=== PATIENT | male | born 1945 | race Caucasian/White ===

== ENCOUNTER → 2020-04-19 | Outpatient (CLI) | payer OTHER ==
[~2020-04-19] MED LIST: ASPIRIN EC81 M1 PO; DULOXETINE HCL60 MG PO; LEVOTHYROXINE75 MCG PO; NAPROSYN500 MG PO; NORCO 5-325 TA1 EAC2 PO; ROSUVASTATIN CAL5 MG PO; TESTOSTERO200 MG/1 M IM; TIADYLT ER360 MG PO
== END ==
LOC: M.LAB 09:26
PROVIDERS: ATTEND Orthopaedic Surgery
DX: Z01.812 Encounter for preprocedural laboratory examination (principal); Z20.828 Contact with and (suspected) exposure to other viral communicable diseases

== ENCOUNTER → 2020-04-25 | Day surgery (SDC) | payer OTHER ==
--- NOTE | 2020-04-25 11:02 | EKG ---
[place] [address] ELECTROCARDIOGRAM REPORT Name: NEWTON ASTUDILLO Room: [facility]#: [id number] Admission: 04/25/20 Attend Phys: Carlos Lopes DO Discharge: Date of : 41 Date of Service: 04/25/20 1058 Report #: [id number] THIS REPORT FOR: //name// [facility] Test Date: 2020-04-25 Test Time: 10:58:47 Pat Name: NEWTON ASTUDILLO Department: Room: Gender: [employer]: : 1945 Requested By: Carlos Lopes Order Number: [id number] MD: Semaj Rushing Measurements Intervals [place] Rate: 64 P: 47 AK: 188 QRS: -24 QRSD: 168 T: 6 QT: 430 QTc: 444 Interpretive Statements Sinus rhythm Ventricular premature complex Right bundle branch block No previous ECG available for comparison Electronically Signed On 04-25-2020 11:02:39 SCRAP [employer]IP[employer] by Semaj Rushing [email or web address] <ELECTRONICALLY SIGNED> By: Semaj Rushing MD, [facility] 04/25/20 1102 57 Semaj Rushing MD, FACC /EPI
[2020-04-25 11:06] LABS: HEMATOCRIT 39.9 % (42.0-52.0); HEMOGLOBIN 12.8 gm/dL (14.0-18.0); MCH 24.5 pg (26.0-34.0); MCHC 32.2 g/dL (28.0-37.0); MCV 76.2 fL (80.0-100.0); MPV 7.5 fl. (7.2-11.1); RBC 5.24 mil/uL (4.50-6.00); RDW-CV 17.3 % (10.5-14.5); WBC 6.4 thou/uL (4.0-11.0)
[2020-04-25 11:12] LABS: CALCIUM 9.3 mg/dL (8.5-10.1); CREATININE 0.9 mg/dL (0.6-1.3); POTASSIUM 4.1 mmol/L (3.5-5.1)
--- NOTE | 2020-04-27 17:06 | PATH ---
[address] [address] PATHOLOGY RPT PROCEDURE Name: TEVIN ASTUDILLO Room: [facility]..#: [id number] Admission: 04/25/20 Date of : 41 Discharge: Report #: [id number] Path Case #: [id number] [facility] Accession Number: [id number] . 01 Material submitted: . PART A: shoulder - LIPOMA RIGHT SHOULDER. Modifiers: right PART B: neck - LIPOMA POSTERIOR NECK. Modifiers: posterior . 01 Clinical history: . CARPAL TUNNEL RELEASE, EXCISION LIPOMA, RIGHT CARPAL TUNNEL SYNDROME, BENIGN LIPOMA RIGHT SHOULDER, BENIGN POSTERIOR NECK . 02 Diagnosis: A. Right shoulder (lipoma): - Lipoma and attached benign skeletal muscle. . B. Posterior neck (lipoma): - Lipoma. (JONG/db; 04/27/2020) LBQ 04/27/2020 1457 Local . 02 Electronically signed: . Jackson Rocha MD, Pathologist NPI- [id number] . 01 Gross description: . A. The specimen is received in formalin, labeled "Tevin Astudillo, right shoulder" and consists of a partially encapsulated segment of yellow lobulated tissue measuring 10.1 x 6.4 x 2.3 cm with focal brown muscle. Section reveals homogeneous yellow cut surfaces and dealer compliance representative sections are submitted in A1-A3. . B. The specimen is received in formalin, labeled "Tevin Astudillo, posterior neck" and consists of a partially encapsulated segment of yellow lobulated tissue measuring 10.8 x 10.0 x 3.5 cm. Sectioning reveals homogeneous yellow cut surfaces and dealer compliance representative sections are submitted in B1-B3. (SDY; 04/26/2020) SYU/SYU 04/26/2020 1427 Local . 02 Pathologist provided ICD-10: D17.0, D17.39 . 02 CPT . 651317, 779364 Specimen Comment: A courtesy copy of this report has been sent to [phone], [facility]230 Specimen Comment: [address] [place] [address] PATHOLOGY RPT PROCEDURE Name: TEVIN ASTUDILLO Room: [facility]..#: [id number] Admission: 04/25/20 Date of : 41 Discharge: Report #: [id number] Path Case #: [id number] Specimen Comment: Report sent to / DR NEVES Performed at: [address], [place], [place] [id number] MD Yevgeniy More MD Phone: [phone] Performed at: 02 [facility] [address], [employer] [place], [place] [id number] MD Jackson Rocha MD Phone: [phone]
--- NOTE | 2020-05-02 14:07 | OP ---
[facility] [address] [place] [address] OPERATIVE REPORT Name: NEWTON ASTUDILLO Room: [facility].#: [id number] Admission: 04/25/20 Attend Phys: Carlos Lopes DO Discharge: Date of : 41 Report #: [id number] THIS REPORT FOR: //name// cc: Jamal Ibrahim Bradley L. DO ~ CC: Jamal Lopes DICTATED BY: Jose Luis Morales DO DATE OF SERVICE: 04/25/2020 PREOPERATIVE DIAGNOSES: 1. Right carpal tunnel syndrome. 2. Mass, posterior neck. 3. Mass, right posterior shoulder. POSTOPERATIVE DIAGNOSES: 1. Right carpal tunnel syndrome. 2. Mass, posterior neck. 3. Mass, right posterior shoulder. PROCEDURES: 1. Right carpal tunnel release. 2. Wide en bloc resection of posterior neck mass. 3. Wide en bloc resection of right posterior shoulder mass. SURGEON: Carlos Lopes DO ASSISTANTS: 1. Sabine Latham PA-C 2. Jose Luis Morales DO ANESTHESIA: General and local. FLUIDS: Crystalloid per Anesthesia. ESTIMATED BLOOD LOSS: 20 mL. DRAINS: None. SPECIMENS: 1. Mass from the posterior neck. 2. Soft tissue mass from right posterior shoulder. COMPLICATIONS: None. [facility] [place] [address] [place] [address] OPERATIVE REPORT Name: NEWTON ATSUDILLO Room: [facility]#: [id number] Admission: 04/25/20 Attend Phys: Carlos Lopes DO Discharge: Date of : 41 Report #: [id number] CONDITION: Stable to PACU. DISPOSITION: Recovery in the PACU and discharged home. ANTIBIOTICS: 2 grams Ancef IV preop. TOURNIQUET: 250 mmHg for approximately 15 minutes. INDICATIONS FOR PROCEDURE: The patient is a very pleasant 74-year-old male who presented with clinical findings consistent with carpal tunnel syndrome. He also had EMG evidence of this as well. We recommended carpal tunnel release. He also had a posterior neck mass and right posterior shoulder mass, which had been present for years. He has no history of cancer. We obtained MRIs, which were consistent with large lipomas. MRI consisted of the C-spine and right shoulder. We discussed referral to Dr. Pena; however, the patient wanted to stay local for definitive management. We discussed carpal tunnel release and resection of both of the masses. The risks, benefits, alternatives and possible complications were discussed. He was agreeable to proceed. DESCRIPTION OF PROCEDURE: The patient was met in the preoperative area. The correct sites were marked. Consent was obtained both verbally and written. He was transferred to the operative suite and placed supine on the operative table. He was given the benefit of general anesthesia. The right upper extremity was then prepped and draped in the normal sterile fashion. This was done after a well-padded nonsterile tourniquet was applied. A timeout was performed to identify correct patient, procedure and operative site. All in the room were in agreement. A longitudinal incision was made over the carpal tunnel from the wrist crease to Cabral's cardinal line. This was on the radial aspect of the fourth ray. Sharp dissection was carried down to the transverse carpal ligament. Care was taken to avoid neurovascular structures including branches of the median nerve. The [employer] carpal tunnel release system was then used for dilation and transection of the transverse carpal ligament. Full release was confirmed both proximally and distally by visual inspection and by palpation. The wound was then irrigated thoroughly and closed with 4-0 nylon sutures in simple interrupted fashion followed by application of a sterile dressing including Xeroform, 4 x 4's, Kerlix and an Herman wrap. We then turned our attention to the resection of the masses from the posterior neck and right shoulder. The patient was turned from the supine position to the lateral decubitus position with an axillary roll. He was secured to the table. The area was then prepped and draped in normal sterile fashion. A longitudinal incision was made directly over the mass on the posterior aspect of the shoulder. Dissection was carried out using Metzenbaum scissors, ensuring full resection of the lipoma appearing tissue. Resection was carried out including a small cuff of normal tissue. Hemostasis was obtained throughout the case with electrocautery. The right posterior shoulder [place] [address] OPERATIVE REPORT Name: NEWTON ASTUDILLO [facility] [id number] Admission: 04/25/20 Attend Phys: Carlos Lopes DO Discharge: Date of : 41 Report #: [id number] sent for specimen. We then thoroughly irrigated the wound and reapproximated the dermal tissue with 2-0 Vicryl suture in simple interrupted inverted fashion followed by jabari on the skin. We then turned our attention to the posterior neck mass. A longitudinal incision was made directly over this. Dissection was carried down to the level of the lipomatous appearing tissue. We then used Metzenbaum scissors for circumferential dissection and removal of the mass with a small cuff of normal tissue. Hemostasis was meticulously obtained using electrocautery throughout the case. We then thoroughly irrigated this wound. Dermal tissue was reapproximated again with 2-0 Vicryl suture followed by jabari on the skin. Sterile pressure dressings were then applied to both incisions on the neck and posterior shoulder. He was extubated and transferred to the PACU in stable condition. All needle and sponge counts were correct x 2 at the end of the case. Dr. Lopes was present and scrubbed throughout all critical aspects of the case. <ELECTRONICALLY SIGNED> By: Carlos Lopes DO 05/02/20 1407 1709 [id number] Lopes DO /nt
== END | disposition home or self-care (01) ==
LOC: M.SUR
PROVIDERS: ATTEND Orthopaedic Surgery
DX: G56.01 Carpal tunnel syndrome, right upper limb (principal); D17.21 Benign lipomatous neoplasm of skin and subcutaneous tissue of right arm; D17.0 Benign lipomatous neoplasm of skin and subcutaneous tissue of head, face and neck; I10 Essential (primary) hypertension; E07.9 Disorder of thyroid, unspecified; Z98.890 Other specified postprocedural states; Z79.899 Other long term (current) drug therapy; Z79.82 Long term (current) use of aspirin